=== PATIENT | male | born 1945 | race Caucasian/White ===

== ENCOUNTER → 2019-02-25 12:37 | Outpatient (CLI) | payer MEDICARE, BC ==
[2015-12-05 13:17] VITALS: BMI 33.5
[~2019-02-25 12:37] MED LIST: ASPIRIN EC81 M1 PO; COZAAR50 MG PO; HYTRIN10 MG PO; PRAVASTATIN SOD10 MG PO; PRILOSEC20 MG PO
--- NOTE | 2019-02-28 13:55 | EC ---
PATIENT:GUS JANG DATE OF SERVICE: 02/25/19 SEX: M MEDICAL RECORD: [id number] DATE OF : [birth year] [facility] AGE OF PATIENT: 73 ADMISSION DATE: 02/25/19 REFERRING PHYSICIAN: INTERPRETING PHYSICIAN: TYRA WORTHY MD ECHOCARDIOGRAM REPORT ECHO CHARGES 4 ECHO COMPLETE Date: 02/25/19 CLINICAL DIAGNOSIS: PALPITATIONS,ASSESS EF AND VALVES ECHOCARDIOGRAPHIC MEASUREMENTS (adult normal given) AC root (d.<3.7cm) 3.6 cm LV Septum d (<1.2 cm> 1.4 cm Valve Excursion 1.7 cm LV Septum (systole) 1.5 cm Left Atria (s.<4.0cm> 4.2 cm LVPW d(<1.2cm) 1.4 cm RV (d.<2.3cm) 4.1 cm LVPW (sytole) 1.7 cm LV diastole(<5.6CM) 6.3 cm MV E-F(>70mm/sec) cm LV systole 4.5 cm LVOT Diameter 1.8 cm MV exc.(>10mm) 2.0 cm Est.ejection fraction (50-75%) % DOPPLER: LVIT cm/sec A 112 cm/sec E 94.0 cm/sec LA cm/sec RVSP 37 mmHg LVOT 125 cm/sec AOP1/2T m/s Asc. 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 Chavez TAPE# PACS Pericardial Effusion N DATE OF SERVICE: Adequate 2D, color flow, spectral Doppler, and M-mode. LVH is present. LV internal dimension is dilated at 6.3 cm. LV function is normal. EF is greater than or equal to 55%. Aortic valve is tricuspid. No evidence of stenosis on Doppler interrogation. Left atrium mildly dilated at 4.2 cm. Mitral valve shows no prolapse. Trace MR. Right-sided chambers grossly normal. Trace TR. TRANSINT:[id number] Voice Confirmation ID: [id number] DOCUMENT ID: [id number] ECHOCARDIOGRAM REPORT [id number] GUS JANG GREGORY A MD at 1355 CC: [id number] DICTATION DATE: 02/28/19 1313 CELERY PACKER: 02/28/19 1325 DEP CLI 02/25/19 [place] [id number]
== END | disposition home or self-care (01) ==
LOC: D.HCCARDIO 12:37
PROVIDERS: ATTEND Internal Medicine Interventional Cardiology
DX: I10 Essential (primary) hypertension (principal)

== ENCOUNTER → 2020-03-05 10:46 | Outpatient (CLI) | payer MEDICARE, BC ==
[2015-12-05 13:17] VITALS: BMI 33.5
--- NOTE | ~2020-03-05 | EC ---
PATIENT:GUS JANG DATE OF SERVICE: 03/05/20 SEX: M MEDICAL RECORD: [id number] DATE OF : 43 [facility] AGE OF PATIENT: 74 ADMISSION DATE: 03/05/20 REFERRING PHYSICIAN: INTERPRETING PHYSICIAN: TYRA WORTHY MD ECHOCARDIOGRAM REPORT ECHO CHARGES 4 ECHO COMPLETE Date: 03/05/20 CLINICAL DIAGNOSIS: HX OF ATRIAL FIB/PALPIATIONS ASSESS EF AND VALVES ECHOCARDIOGRAPHIC MEASUREMENTS (adult normal given) AC root (d.<3.7cm) 4.1 cm LV Septum d (<1.2 cm> 1.2 cm Valve Excursion 1.9 cm LV Septum (systole) 1.5 cm Left Atria (s.<4.0cm> 3.5 cm LVPW d(<1.2cm) 1.5 cm RV (d.<2.3cm) 4.4 cm LVPW (sytole) 1.8 cm LV diastole(<5.6CM) 5.9 cm MV E-F(>70mm/sec) cm LV systole 4.1 cm LVOT Diameter 1.8 cm MV exc.(>10mm) 1.9 cm Est.ejection fraction (50-75%) % DOPPLER: LVIT cm/sec A 94.0 cm/sec E 125.0 cm/sec LA cm/sec RVSP 31 mmHg LVOT 112 cm/sec AOP1/2T m/s Asc. 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 Chavez TAPE# PACS Pericardial Effusion N DATE OF SERVICE: Adequate 2D, color flow imaging, spectral Doppler, and M-mode. Mild LVH. LV internal dimension is normal. Wall motion is normal. EF is greater than or equal to 55%. Aortic valve is tricuspid. No evidence of stenosis by Doppler interrogation. Left atrium is normal at 3.5 cm. Mitral valve shows no prolapse. Trace MR. Right-sided chambers grossly normal. Trace TR. ECHOCARDIOGRAM REPORT [id number] GUS JANG TRANSINT:[id number] Voice Confirmation ID: [id number] DOCUMENT ID: [id number] TYRA WORTHY MD CC: [id number] DICTATION DATE: 03/06/20 1307 PRODUCT MARKETING CONSULTANT: 03/06/202154 DEP CLI 03/05/20 [place] [id number]
== END | disposition home or self-care (01) ==
LOC: D.HCCECHO 10:00
PROVIDERS: ATTEND Internal Medicine Interventional Cardiology
DX: I48.91 Unspecified atrial fibrillation (principal)